=== PATIENT | female | born 1985 | race Two or more races ===

== ENCOUNTER 2023-01-07 07:20 | Inpatient (IN) | payer OTHER ==
[~2023-01-07] VITALS: Ht 157.5 cm; Wt 85.3 kg
[2023-01-07] MEDS ORDERED: PRENATAL TABLE1 EAC1 PO (14:14)
== END 2023-01-09 17:50 | disposition home or self-care (01) | DRG 807 ==
LOC: LDR 07:20 → OB/GYN 07:20
PROVIDERS: ADMIT Specialist; ATTEND Specialist
PROC: 10E0XZZ Delivery of Products of Conception, External Approach (ICD-10-PCS; principal; 2023-01-07)
PROC: 0HQ9XZZ Repair Perineum Skin, External Approach (ICD-10-PCS; 2023-01-07)
PROC: 0UQMXZZ Repair Vulva, External Approach (ICD-10-PCS; 2023-01-07)
PROC: 4A1HXCZ Monitoring of Products of Conception, Cardiac Rate, External Approach (ICD-10-PCS; 2023-01-07)
DX: O70.0 First degree perineal laceration during delivery (principal); O71.82 Other specified trauma to perineum and vulva; Z37.0 Single live birth; Z3A.38 38 weeks gestation of pregnancy; O99.824 Streptococcus B carrier state complicating childbirth